=== PATIENT | male | born 1935 | race Caucasian/White ===

== ENCOUNTER → 2018-01-13 | Outpatient (CLI) | payer OTHER ==
[~2018-01-13] MED LIST: ATOR40TA69 PO; FLAX100030 PO; HYDR-2132 PO; METO50TA18 PO; OMEG300C3 PO; PRED5TAB PO; WARF4TAB72 PO
== END ==
LOC: RAH 11:23
PROVIDERS: ATTEND Internal Medicine
DX: R06.00 Dyspnea, unspecified (principal)
CPT/HCPCS: 71046

== ENCOUNTER → 2018-02-26 | Outpatient (CLI) | payer OTHER | END | disposition home or self-care (01) | LOC: SHCH 11:32 | PROVIDERS: ATTEND Internal Medicine Cardiovascular Disease | DX: I51.7 Cardiomegaly (principal); I48.2 Chronic atrial fibrillation | CPT/HCPCS: 93306 ==

== ENCOUNTER → 2018-03-07 | Outpatient (CLI) | payer OTHER | END | disposition home or self-care (01) | LOC: SHCH 08:51 | PROVIDERS: ATTEND Internal Medicine Cardiovascular Disease | DX: R60.9 Edema, unspecified (principal) | CPT/HCPCS: 93970 ==

== ENCOUNTER → 2018-09-12 | Outpatient (CLI) | payer OTHER | END | disposition home or self-care (01) | LOC: RAH 13:31 | PROVIDERS: ATTEND Internal Medicine | DX: N64.4 Mastodynia (principal); I48.91 Unspecified atrial fibrillation | CPT/HCPCS: 76641 ==

== ENCOUNTER → 2019-02-04 | Outpatient (CLI) | payer OTHER | END | disposition home or self-care (01) | LOC: SHCH 16:16 | PROVIDERS: ATTEND Internal Medicine Cardiovascular Disease | DX: I08.0 Rheumatic disorders of both mitral and aortic valves (principal); I48.2 Chronic atrial fibrillation | CPT/HCPCS: 93306 ==

== ENCOUNTER → 2019-06-01 | Outpatient (CLI) | payer OTHER | END | disposition home or self-care (01) | LOC: RAH 13:19 | PROVIDERS: ATTEND Internal Medicine | DX: M51.36 Other intervertebral disc degeneration, lumbar region (principal); M48.061 Spinal stenosis, lumbar region without neurogenic claudication | CPT/HCPCS: 72100 ==

== ENCOUNTER → 2019-10-28 | Outpatient (CLI) | payer OTHER | END | disposition home or self-care (01) | LOC: SHCH 12:41 | PROVIDERS: ATTEND Internal Medicine Cardiovascular Disease | DX: I08.2 Rheumatic disorders of both aortic and tricuspid valves (principal); I48.20 Chronic atrial fibrillation, unspecified | CPT/HCPCS: 93306; 93970 ==

== ENCOUNTER → 2019-11-23 | Outpatient (CLI) | payer OTHER ==
[~2019-11-23] MED LIST changes: +DIGO125T71 PO
== END | disposition home or self-care (01) ==
LOC: RAH 11:35
PROVIDERS: ATTEND Internal Medicine
DX: H34.8192 Central retinal vein occlusion, unspecified eye, stable (principal); H35.82 Retinal ischemia
CPT/HCPCS: 93880

== ENCOUNTER → 2019-11-23 | Outpatient (CLI) | payer OTHER | END | disposition home or self-care (01) | LOC: SHCH 10:00 | PROVIDERS: ATTEND Internal Medicine Cardiovascular Disease | DX: I87.2 Venous insufficiency (chronic) (peripheral) (principal); Z09 Encounter for follow-up examination after completed treatment for conditions other than malignant neoplasm | CPT/HCPCS: 93971 ==

== ENCOUNTER → 2020-02-22 | Outpatient (CLI) | payer OTHER | END | disposition home or self-care (01) | LOC: SHCH 11:23 | PROVIDERS: ATTEND Internal Medicine Cardiovascular Disease | DX: I82.811 Embolism and thrombosis of superficial veins of right lower extremity (principal); Z09 Encounter for follow-up examination after completed treatment for conditions other than malignant neoplasm | CPT/HCPCS: 93971 ==

== ENCOUNTER 2020-10-23 16:40 | Inpatient (IN) | payer OTHER ==
[~2020-10-23] VITALS: Ht 177.8 cm; Wt 91.2 kg
[2020-10-23 17:03] LABS: APPEARANCE,URINE Clear (CLEAR); BILIRUBIN,URINE Negative (NEGATIVE); COLOR,URINE Yellow (YELLOW); GLUCOSE, URINE (UA) Negative (NEGATIVE); KETONES,URINE Negative (NEGATIVE); LEUKOCYTE ESTERASE ,URINE Trace (NEGATIVE); NITRATE,URINE Negative (NEGATIVE); OCCULT BLOOD,URINE Negative (NEGATIVE); PROTEIN,URINE Negative (NEGATIVE); UROBILINOGEN,URINE 0.2 mg/dL (0.2-1.0)
[2020-10-23 17:19] LABS: BACTERIA,URINE Rare /HPF (None Seen); MUCUS,URINE Few LPF (None Seen); RBC,URINE 0-1 /HPF (0-1); SQUAMOUS EPITHELIAL CELL,UR 0-2 /HPF (0-2)
[2020-10-23 17:57] LABS: BASOPHILS % (AUTO) 0.4 % (0.0-5.0); EOSINOPHILS % (AUTO) 1.6 % (0.0-8.0); HEMATOCRIT 34.4 % (42-54); LYMPHOCYTES % (AUTO) 7.4 % (21.0-51.0); MEAN CORPUSCULAR HEMOGLOBIN 29.6 pg (27.0-33.0); MEAN CORPUSCULAR HGB CONC 32.3 g/dL (32.0-36.0); MEAN CORPUSCULAR VOLUME 91.7 fL (79-99); MONOCYTES % (AUTO) 9.8 % (3.0-13.0); PLATELET COUNT (AUTO) 399 K/uL (130-400); RED BLOOD CELL COUNT(AUTO) 3.75 MIL/uL (4.50-6.20); RED CELL DISTRIBUTION WIDTH 16.9 % (11.0-15.5); WHITE BLOOD COUNT (AUTO) 11.7 K/uL (4.8-10.8)
[2020-10-23 18:11] LABS: PARTIAL THROMBOPLASTIN TIME 60.6 SEC (26.3-35.5)
[2020-10-23] MEDS ORDERED: LORAZEPAM 2 MG/ML 1 ML VIAL ONE (18:11)
[2020-10-23 18:13] LABS: ALBUMIN 2.4 g/dL (3.5-5.0); BILIRUBIN,TOTAL 0.7 mg/dL (0.2-1.0); TOTAL PROTEIN, SERUM 6.7 g/dL (6.0-8.3)
[2020-10-23 18:20] LABS: POTASSIUM 2.2 mmol/L (3.5-5.1)
[2020-10-23 18:29] LABS: B-TYPE NATRIURETIC PEPTIDE 654 pg/mL (0-100)
[2020-10-23 18:30] LABS: INR 6.66 (0.85-1.15)
[2020-10-23 18:54] LABS: BILIRUBIN,DIRECT 0.3 mg/dL (0.0-0.3)
[2020-10-23] MEDS ORDERED: PHYTONADIONE 10 MG/1 ML AMP ONE (19:11)
[2020-10-23] MEDS ORDERED: POTASSIUM BICARB/CIT AC 25 MEQ TABLET.EFF ONE (19:11)
[2020-10-23] MEDS ORDERED: CEFTRIAXONE SODIUM 1 GM ONE (19:56)
[2020-10-23] MEDS ORDERED: AZITHROMYCIN 250 MG TABLET PO ONE (19:57)
[2020-10-23] MEDS ORDERED: ACETAMINOPHEN 325 MG TAB PO PRN ×2 (20:30)
[2020-10-23] MEDS: SODIUM CHLORIDE 0.9% 1000ML 1,000 ML IV SCH (20:30)
[2020-10-23] MEDS ORDERED: LACTULOSE 20 GM/30 ML UDCUP PO PRN (20:30)
[2020-10-23] MEDS ORDERED: ONDANSETRON HCL 4 MG/2 ML VIAL IV PRN (20:30)
[2020-10-23 21:03] LABS: CRP QUANTITATIVE 123.1 mg/L (0.00-9.0); MAGNESIUM 1.7 mg/dL (1.80-2.40); PHOSPHORUS 4.9 mg/dL (2.5-4.9); THYROID STIMULATING HORMONE 3.06 uIU/mL (0.36-3.74)
[2020-10-23] MEDS ORDERED: FAMOTIDINE/PF 20 MG/2 ML VIAL IV ONE (21:14)
[2020-10-23 21:26] LABS: HEMOGLOBIN A1C 6.1 % (4.0-6.0)
[2020-10-24 00:30] VITALS: BP 121/59
[2020-10-24] MEDS ORDERED: BUME2TAB5 PO (00:54)
[2020-10-24] MEDS ORDERED: GABA-529 PO ×2 (00:54)
[2020-10-24] MEDS ORDERED: METO2.5T2 PO (00:54)
[2020-10-24] MEDS ORDERED: ACET1TAB25 PO (00:54)
[2020-10-24] MEDS ORDERED: LEVO75TA4 PO (00:54)
[2020-10-24] MEDS ORDERED: FURO40TA5 PO (00:54)
[2020-10-24] MEDS ORDERED: WARF4TAB72 PO (00:54)
[2020-10-24 02:25] LABS: BASOPHILS % (AUTO) 0.4 % (0.0-5.0); EOSINOPHILS % (AUTO) 1.7 % (0.0-8.0); HEMATOCRIT 33.6 % (42-54); MEAN CORPUSCULAR HGB CONC 32.7 g/dL (32.0-36.0); MEAN CORPUSCULAR VOLUME 91.6 fL (79-99); MONOCYTES % (AUTO) 9.2 % (3.0-13.0); PLATELET COUNT (AUTO) 352 K/uL (130-400); RED BLOOD CELL COUNT(AUTO) 3.67 MIL/uL (4.50-6.20); WHITE BLOOD COUNT (AUTO) 10.4 K/uL (4.8-10.8)
[2020-10-24 02:39] LABS: ALBUMIN 2.3 g/dL (3.5-5.0); BILIRUBIN,TOTAL 0.6 mg/dL (0.2-1.0); PARTIAL THROMBOPLASTIN TIME 66.6 SEC (26.3-35.5); TOTAL PROTEIN, SERUM 6.4 g/dL (6.0-8.3)
[2020-10-24 02:42] LABS: POTASSIUM 2.1 mmol/L (3.5-5.1)
[2020-10-24 02:51] LABS: INR > 7.00 (0.85-1.15); PROTHROMBIN TIME 63.6 SEC (9.6-11.6)
[2020-10-24] MEDS ORDERED: MAGNESIUM 2GM PREMIX 50ML 50 ML IV PRN ×2 (04:30→08:30)
[2020-10-24 05:21] VITALS: BP_SYST 35; BP_SYST 64; BP_SYST 96; BP_DIAS 23; BP_DIAS 46; BP_DIAS 55
[2020-10-24] MEDS: SODIUM CHLORIDE 0.9% 1000ML 1,000 ML IV SCH ×3 (06:30→15:45)
[2020-10-24] MEDS: LIDOCAINE HCL-MPF 1% 2ML VIAL IV PRN ×2 (06:34→22:03)
[2020-10-24] MEDS: POTASSIUM CHLORIDE 10MEQ/100ML 100 ML IV PRN ×3 (06:34→22:03)
[2020-10-24] MEDS: POTASSIUM CHLORIDE 10% ELIXIR 20 MEQ/15 ML UDCUP PO PRN ×4 (06:35→18:36)
[2020-10-24] MEDS ORDERED: SODIUM CHLORIDE 0.9% 1000ML 1,000 ML IV SCH (07:45)
[2020-10-24] MEDS: CEFTRIAXONE SODIUM 1 GM IV SCH (08:45)
[2020-10-24] MEDS: FAMOTIDINE/PF 20 MG/2 ML VIAL IV SCH (08:45)
[2020-10-24 08:47] VITALS: BP 114/61
[2020-10-24] MEDS ORDERED: METOPROLOL TARTRATE 50 MG TAB PO SCH (09:00)
[2020-10-24] MEDS: METOPROLOL TARTRATE 25 MG TAB PO SCH ×3 (09:00→21:39)
[2020-10-24] MEDS ORDERED: BUMETANIDE 1 MG TAB PO SCH (09:00)
[2020-10-24] MEDS ORDERED: METOLAZONE 2.5 MG TABLET PO SCH (09:00)
[2020-10-24] MEDS ORDERED: DILTIAZEM HCL 180 MG CAP.SR.24H PO SCH (09:00)
[2020-10-24 10:13] LABS: CREATININE 2.9 mg/dL (0.5-1.5)
[2020-10-24] MEDS ORDERED: PHYTONADIONE 10 MG/1 ML AMP SQ SCH (10:15)
[2020-10-24 10:20] LABS: POTASSIUM 2.9 mmol/L (3.5-5.1)
[2020-10-24] MEDS ORDERED: LORAZEPAM 2 MG/ML 1 ML VIAL IVP PRN (11:30)
[2020-10-24 13:35] VITALS: BP 107/64
[2020-10-24 14:36] LABS: POTASSIUM 2.7 mmol/L (3.5-5.1)
[2020-10-24] MEDS ORDERED: RENAL DOSE IV SCH (15:30)
[2020-10-24 17:06] VITALS: BP 129/68
[2020-10-24 20:00] VITALS: BP 128/76
[2020-10-24 20:25] LABS: CREATININE 2.7 mg/dL (0.5-1.5)
[2020-10-24 20:57] LABS: POTASSIUM 2.6 mmol/L (3.5-5.1)
[2020-10-24] MEDS: ATORVASTATIN CALCIUM 40 MG TABLET PO SCH ×2 (21:00→21:39)
[2020-10-24] MEDS: ZOSYN 3.375GM+NS 50ML 50 ML IV SCH (21:39)
[2020-10-25] VITALS: BP 111/70
[2020-10-25 04:00] VITALS: BP 131/74
[2020-10-25] MEDS: LORAZEPAM 2 MG/ML 1 ML VIAL IVP PRN ×2 (04:04→11:54)
[2020-10-25] MEDS: POTASSIUM CHLORIDE 10MEQ/100ML 100 ML IV PRN ×4 (04:23→21:53)
[2020-10-25] MEDS: LIDOCAINE HCL-MPF 1% 2ML VIAL IV PRN ×4 (04:23→21:54)
[2020-10-25 05:04] LABS: BASOPHILS % (AUTO) 0.4 % (0.0-5.0); EOSINOPHILS % (AUTO) 3.2 % (0.0-8.0); HEMATOCRIT 30.3 % (42-54); LYMPHOCYTES % (AUTO) 6.2 % (21.0-51.0); MEAN CORPUSCULAR HEMOGLOBIN 29.6 pg (27.0-33.0); MEAN CORPUSCULAR HGB CONC 31.7 g/dL (32.0-36.0); MEAN CORPUSCULAR VOLUME 93.5 fL (79-99); MONOCYTES % (AUTO) 9.6 % (3.0-13.0); NEUTROPHILS % (AUTO) 80.1 % (40.0-77.0); PLATELET COUNT (AUTO) 324 K/uL (130-400); RED BLOOD CELL COUNT(AUTO) 3.24 MIL/uL (4.50-6.20); RED CELL DISTRIBUTION WIDTH 17.1 % (11.0-15.5); WHITE BLOOD COUNT (AUTO) 9.8 K/uL (4.8-10.8)
[2020-10-25 05:27] LABS: INR 1.65 (0.85-1.15); PROTHROMBIN TIME 16.9 SEC (9.6-11.6)
[2020-10-25 05:41] LABS: ALBUMIN 2.3 g/dL (3.5-5.0); BILIRUBIN,TOTAL 0.8 mg/dL (0.2-1.0); CREATININE 2.3 mg/dL (0.5-1.5); MAGNESIUM 2.9 mg/dL (1.80-2.40); TOTAL PROTEIN, SERUM 6.3 g/dL (6.0-8.3)
[2020-10-25 05:43] LABS: POTASSIUM 2.5 mmol/L (3.5-5.1)
[2020-10-25] MEDS: LEVOTHYROXINE 75 MCG TABLET PO SCH (06:30)
[2020-10-25 07:55] VITALS: BP 151/66
[2020-10-25 08:38] LABS: CREATININE 2.2 mg/dL (0.5-1.5)
[2020-10-25] MEDS: METOPROLOL TARTRATE 25 MG TAB PO SCH ×2 (09:00→21:26)
[2020-10-25 09:10] LABS: POTASSIUM 2.5 mmol/L (3.5-5.1)
[2020-10-25] MEDS: ZOSYN 3.375GM+NS 50ML 50 ML IV SCH ×2 (10:49→21:25)
[2020-10-25] MEDS: CEFTRIAXONE SODIUM 1 GM IV SCH (10:50)
[2020-10-25] MEDS: FAMOTIDINE/PF 20 MG/2 ML VIAL IV SCH (10:50)
[2020-10-25 12:00] VITALS: BP 137/79
[2020-10-25 15:47] LABS: CREATININE 1.9 mg/dL (0.5-1.5)
[2020-10-25 15:57] VITALS: BP 111/65
[2020-10-25 16:03] LABS: POTASSIUM 2.7 mmol/L (3.5-5.1)
[2020-10-25 20:00] VITALS: BP 151/66
[2020-10-25 21:14] LABS: CREATININE 1.7 mg/dL (0.5-1.5)
[2020-10-25 21:22] LABS: POTASSIUM 2.9 mmol/L (3.5-5.1)
[2020-10-25] MEDS: POTASSIUM CHLORIDE 20 MEQ ERTAB PO PRN (21:26)
[2020-10-25] MEDS: ATORVASTATIN CALCIUM 40 MG TABLET PO SCH (21:26)
[2020-10-26] VITALS (8 sets, daily range): BP systolic 105–148; BP diastolic 36–96
[2020-10-26] MEDS: POTASSIUM CHLORIDE 10MEQ/100ML 100 ML IV PRN (02:20)
[2020-10-26] MEDS: LIDOCAINE HCL-MPF 1% 2ML VIAL IV PRN (02:21)
[2020-10-26] MEDS: LEVOTHYROXINE 75 MCG TABLET PO SCH (05:43)
[2020-10-26] MEDS: POTASSIUM CHLORIDE 20 MEQ ERTAB PO PRN (05:44)
[2020-10-26 07:20] LABS: BASOPHILS % (AUTO) 0.3 % (0.0-5.0); EOSINOPHILS % (AUTO) 2.2 % (0.0-8.0); HEMATOCRIT 32.4 % (42-54); LYMPHOCYTES % (AUTO) 8.3 % (21.0-51.0); MEAN CORPUSCULAR HEMOGLOBIN 29.2 pg (27.0-33.0); MEAN CORPUSCULAR HGB CONC 30.9 g/dL (32.0-36.0); MEAN CORPUSCULAR VOLUME 94.5 fL (79-99); MONOCYTES % (AUTO) 11.2 % (3.0-13.0); NEUTROPHILS % (AUTO) 77.4 % (40.0-77.0); PLATELET COUNT (AUTO) 340 K/uL (130-400); RED BLOOD CELL COUNT(AUTO) 3.43 MIL/uL (4.50-6.20); RED CELL DISTRIBUTION WIDTH 17.4 % (11.0-15.5); WHITE BLOOD COUNT (AUTO) 8.8 K/uL (4.8-10.8)
[2020-10-26] MEDS: ZOSYN 3.375GM+NS 50ML 50 ML IV SCH ×2 (07:55→21:41)
[2020-10-26] MEDS: CEFTRIAXONE SODIUM 1 GM IV SCH (07:56)
[2020-10-26] MEDS: METOPROLOL TARTRATE 25 MG TAB PO SCH (07:58)
[2020-10-26] MEDS: FAMOTIDINE/PF 20 MG/2 ML VIAL IV SCH (07:58)
[2020-10-26 08:01] LABS: INR 1.3 (0.85-1.15); PROTHROMBIN TIME 13.6 SEC (9.6-11.6)
[2020-10-26 08:07] LABS: % IRON SATURATION 14.3 % (30-44)
[2020-10-26] MEDS: LORAZEPAM 2 MG/ML 1 ML VIAL IVP PRN (08:19)
[2020-10-26 09:12] LABS: ALBUMIN 2.4 g/dL (3.5-5.0); BILIRUBIN,TOTAL 1.2 mg/dL (0.2-1.0); CREATININE 1.6 mg/dL (0.5-1.5); POTASSIUM 3.3 mmol/L (3.5-5.1); TOTAL PROTEIN, SERUM 5.5 g/dL (6.0-8.3)
[2020-10-26] MEDS ORDERED: METOPROLOL TARTRATE 1 MG/ML 5ML VIAL IV ONE (10:14)
[2020-10-26] MEDS ORDERED: METOPROLOL TARTRATE 1 MG/ML 5ML VIAL IV SCH (10:15)
[2020-10-26] MEDS: DILTIAZEM HCL 125 MG/25 ML 125 MG in SODIUM CHLORIDE 0.9% 100 ML IV SCH (10:48)
[2020-10-26] MEDS: DEXTROSE 5%-WATER 1,000 ML IV SCH (18:32)
[2020-10-26] MEDS ORDERED: METOPROLOL TARTRATE 25 MG TAB PO SCH (21:00)
[2020-10-26] MEDS: ATORVASTATIN CALCIUM 40 MG TABLET PO SCH (21:41)
[2020-10-27] MEDS: DILTIAZEM HCL 125 MG/25 ML 125 MG in SODIUM CHLORIDE 0.9% 100 ML IV SCH ×3 (00:11→23:30)
[2020-10-27 00:34] VITALS: BP 134/72
[2020-10-27] MEDS: LORAZEPAM 2 MG/ML 1 ML VIAL IVP PRN ×4 (02:57→18:11)
[2020-10-27 03:40] VITALS: BP 150/55
[2020-10-27 04:40] LABS: BASOPHILS % (AUTO) 0.4 % (0.0-5.0); EOSINOPHILS % (AUTO) 0.7 % (0.0-8.0); HEMATOCRIT 32.5 % (42-54); LYMPHOCYTES % (AUTO) 7.6 % (21.0-51.0); MEAN CORPUSCULAR HEMOGLOBIN 29.3 pg (27.0-33.0); MEAN CORPUSCULAR HGB CONC 30.5 g/dL (32.0-36.0); MEAN CORPUSCULAR VOLUME 96.2 fL (79-99); NEUTROPHILS % (AUTO) 78.6 % (40.0-77.0); PLATELET COUNT (AUTO) 348 K/uL (130-400); RED BLOOD CELL COUNT(AUTO) 3.38 MIL/uL (4.50-6.20); RED CELL DISTRIBUTION WIDTH 17.6 % (11.0-15.5); WHITE BLOOD COUNT (AUTO) 10.6 K/uL (4.8-10.8)
[2020-10-27 04:50] LABS: INR 1.22 (0.85-1.15); PROTHROMBIN TIME 12.8 SEC (9.6-11.6)
[2020-10-27 04:52] LABS: ALBUMIN 2.4 g/dL (3.5-5.0); BILIRUBIN,TOTAL 1.1 mg/dL (0.2-1.0); CREATININE 1.6 mg/dL (0.5-1.5); MAGNESIUM 2.1 mg/dL (1.80-2.40); PHOSPHORUS 2.3 mg/dL (2.5-4.9); POTASSIUM 3.4 mmol/L (3.5-5.1); TOTAL PROTEIN, SERUM 6.7 g/dL (6.0-8.3)
[2020-10-27] MEDS: LEVOTHYROXINE 75 MCG TABLET PO SCH (05:33)
[2020-10-27] MEDS: CEFTRIAXONE SODIUM 1 GM IV SCH (06:44)
[2020-10-27 08:00] VITALS: BP 94/63
[2020-10-27] MEDS: METOPROLOL SUCCINATE 50 MG TAB.SR.24H PO SCH ×2 (09:00→10:11)
[2020-10-27] MEDS: IRON SUCROSE COMPLEX 100 MG in SODIUM CHLORIDE 0.9% 50 ML IV SCH ×2 (09:00→10:11)
[2020-10-27] MEDS: FAMOTIDINE/PF 20 MG/2 ML VIAL IV SCH (10:06)
[2020-10-27] MEDS: ZOSYN 3.375GM+NS 50ML 50 ML IV SCH ×2 (10:06→20:32)
[2020-10-27] MEDS: DEXTROSE 5%-WATER 1,000 ML IV SCH (10:09)
[2020-10-27 11:45] VITALS: BP 117/68
[2020-10-27] MEDS ORDERED: COMPOUND IV MISC 1 EACH IVSOLN MISC PRN (12:15)
[2020-10-27 16:00] VITALS: BP 120/67
[2020-10-27 19:00] VITALS: BP 102/73
[2020-10-27] MEDS: ATORVASTATIN CALCIUM 40 MG TABLET PO SCH (20:35)
[2020-10-28] VITALS (7 sets, daily range): BP systolic 110–139; BP diastolic 55–102
[2020-10-28] MEDS: DEXTROSE 5%-WATER 1,000 ML IV SCH ×3 (03:13→20:41)
[2020-10-28 04:38] LABS: BASOPHILS % (AUTO) 0.5 % (0.0-5.0); EOSINOPHILS % (AUTO) 3.3 % (0.0-8.0); HEMATOCRIT 32.8 % (42-54); LYMPHOCYTES % (AUTO) 7.2 % (21.0-51.0); MEAN CORPUSCULAR HEMOGLOBIN 28.9 pg (27.0-33.0); MEAN CORPUSCULAR HGB CONC 30.2 g/dL (32.0-36.0); MEAN CORPUSCULAR VOLUME 95.9 fL (79-99); MONOCYTES % (AUTO) 11.8 % (3.0-13.0); NEUTROPHILS % (AUTO) 76.7 % (40.0-77.0); PLATELET COUNT (AUTO) 326 K/uL (130-400); RED BLOOD CELL COUNT(AUTO) 3.42 MIL/uL (4.50-6.20); RED CELL DISTRIBUTION WIDTH 17.5 % (11.0-15.5); WHITE BLOOD COUNT (AUTO) 11.6 K/uL (4.8-10.8)
[2020-10-28 05:01] LABS: CREATININE 1.6 mg/dL (0.5-1.5); POTASSIUM 3.1 mmol/L (3.5-5.1)
[2020-10-28] MEDS: LEVOTHYROXINE 75 MCG TABLET PO SCH (06:30)
[2020-10-28] MEDS: METOPROLOL SUCCINATE 50 MG TAB.SR.24H PO SCH (09:00)
[2020-10-28] MEDS: FAMOTIDINE/PF 20 MG/2 ML VIAL IV SCH (10:04)
[2020-10-28] MEDS: CEFTRIAXONE SODIUM 1 GM IV SCH (10:04)
[2020-10-28] MEDS: ZOSYN 3.375GM+NS 50ML 50 ML IV SCH ×2 (10:04→20:39)
[2020-10-28] MEDS: IRON SUCROSE COMPLEX 100 MG in SODIUM CHLORIDE 0.9% 50 ML IV SCH (19:45)
[2020-10-28] MEDS: ATORVASTATIN CALCIUM 40 MG TABLET PO SCH (20:40)
[2020-10-29 04:00] VITALS: BP 119/74
[2020-10-29 05:22] LABS: BASOPHILS % (AUTO) 0.4 % (0.0-5.0); EOSINOPHILS % (AUTO) 5.3 % (0.0-8.0); HEMATOCRIT 32.2 % (42-54); LYMPHOCYTES % (AUTO) 8.2 % (21.0-51.0); MEAN CORPUSCULAR HEMOGLOBIN 28.9 pg (27.0-33.0); MEAN CORPUSCULAR HGB CONC 29.8 g/dL (32.0-36.0); MONOCYTES % (AUTO) 9.3 % (3.0-13.0); NEUTROPHILS % (AUTO) 76.3 % (40.0-77.0); PLATELET COUNT (AUTO) 313 K/uL (130-400); RED BLOOD CELL COUNT(AUTO) 3.32 MIL/uL (4.50-6.20); RED CELL DISTRIBUTION WIDTH 17.3 % (11.0-15.5); WHITE BLOOD COUNT (AUTO) 9.6 K/uL (4.8-10.8)
[2020-10-29 05:41] LABS: CREATININE 1.5 mg/dL (0.5-1.5)
[2020-10-29] MEDS: LEVOTHYROXINE 75 MCG TABLET PO SCH (06:30)
[2020-10-29] MEDS: METOPROLOL SUCCINATE 50 MG TAB.SR.24H PO SCH (08:19)
[2020-10-29] MEDS: IRON SUCROSE COMPLEX 100 MG in SODIUM CHLORIDE 0.9% 50 ML IV SCH (09:00)
[2020-10-29 09:08] VITALS: BP 144/71
[2020-10-29] MEDS: CEFTRIAXONE SODIUM 1 GM IV SCH (11:55)
[2020-10-29] MEDS: FAMOTIDINE/PF 20 MG/2 ML VIAL IV SCH (11:55)
[2020-10-29 11:59] VITALS: BP 123/76
[2020-10-29 18:23] VITALS: BP 114/66
== END 2020-10-29 19:15 | disposition hospice, home (50) | DRG 392 ==
LOC: EDH 16:40 → EDHIP 20:23 → OBSVTOIN 20:23 → 4DH 23:14
PROVIDERS: ADMIT Internal Medicine; ATTEND Internal Medicine
PROC: 30233L1 Transfusion of Nonautologous Fresh Plasma into Peripheral Vein, Percutaneous Approach (ICD-10-PCS; principal; 2020-10-25)
DX: K57.90 Diverticulosis of intestine, part unspecified, without perforation or abscess without bleeding (principal); E87.3 Alkalosis; E44.0 Moderate protein-calorie malnutrition; N17.9 Acute kidney failure, unspecified; E11.52 Type 2 diabetes mellitus with diabetic peripheral angiopathy with gangrene; E87.0 Hyperosmolality and hypernatremia; I13.0 Hypertensive heart and chronic kidney disease with heart failure and stage 1 through stage 4 chronic kidney disease, or unspecified chronic kidney disease; L03.119 Cellulitis of unspecified part of limb; D68.59 Other primary thrombophilia; I48.20 Chronic atrial fibrillation, unspecified; Z66 Do not resuscitate; G89.29 Other chronic pain; M54.5 Low back pain; D72.829 Elevated white blood cell count, unspecified; D64.9 Anemia, unspecified; E87.6 Hypokalemia; E83.42 Hypomagnesemia; Z20.822 Contact with and (suspected) exposure to COVID-19; Z83.3 Family history of diabetes mellitus; E78.5 Hyperlipidemia, unspecified; Z82.49 Family history of ischemic heart disease and other diseases of the circulatory system; Z68.28 Body mass index [BMI] 28.0-28.9, adult; Z87.891 Personal history of nicotine dependence; Z79.899 Other long term (current) drug therapy; Z95.0 Presence of cardiac pacemaker; N18.9 Chronic kidney disease, unspecified; R62.7 Adult failure to thrive; E11.22 Type 2 diabetes mellitus with diabetic chronic kidney disease; E86.0 Dehydration; E66.9 Obesity, unspecified; I25.10 Atherosclerotic heart disease of native coronary artery without angina pectoris; I45.10 Unspecified right bundle-branch block; I50.9 Heart failure, unspecified; I95.1 Orthostatic hypotension; K21.9 Gastro-esophageal reflux disease without esophagitis; Z79.01 Long term (current) use of anticoagulants; T45.515A Adverse effect of anticoagulants, initial encounter; Z96.652 Presence of left artificial knee joint; R53.81 Other malaise; F41.9 Anxiety disorder, unspecified; E87.8 Other disorders of electrolyte and fluid balance, not elsewhere classified; R55 Syncope and collapse
CPT/HCPCS: 36415; 36430; 70450; 71045; 71250; 74176; 76770; 80048; 80053; 81001; 82248; 82550; 83036; 83540; 83550; 83605; 83735; 83880; 84100; 84132; 84145; 84443; 84484; 85025; 85378; 85610; 85730; 86140; 86850; 86900; 86901; 86927; 87040; 87426; 92610; 93005; 93925; 95819; 97039; 99291; A6454; G0378; J0696; J1756; J2060; J2543; J3430; J3475; J3490; J7070; P9017; U0003